=== PATIENT | male | born 1940 | race Caucasian/White ===

== ENCOUNTER 2020-07-04 10:45 | Day surgery (SDC) | payer OTHER ==
[~2020-07-04] VITALS: Ht 182.9 cm; Wt 91.6 kg
[~2020-07-04 10:45] MED LIST: AMLO10 PO; ATOR20 PO; AZIT250 PO; CODGUAEL PO; EPLE25 PO; Flomax0.4 MG PO; TERA5 PO
[2020-07-04] MEDS ORDERED: HYDCHL25 (11:34)
--- NOTE | 2020-07-04 12:50 | NUR ---
07/04/20 1250 Erica Carbajal PT SENT HOME IN LARGE SLING.
== END 2020-07-04 12:45 | disposition home or self-care (01) ==
LOC: ORSCSDS 10:45
PROVIDERS: Orthopaedic Surgery
PROC: 01N54ZZ Release Median Nerve, Percutaneous Endoscopic Approach (ICD-10-PCS; principal; 2020-07-04 12:00)
DX: G56.02 Carpal tunnel syndrome, left upper limb (principal); I10 Essential (primary) hypertension; E78.5 Hyperlipidemia, unspecified; G47.33 Obstructive sleep apnea (adult) (pediatric); Z79.899 Other long term (current) drug therapy
CPT/HCPCS: J2250; J3010; J7120

== ENCOUNTER → 2022-07-06 | Outpatient (CLI) | payer OTHER ==
[~2022-07-06] MED LIST changes: +HYDCHL25
== END | disposition home or self-care (01) ==
LOC: LAB SHORT 12:10 → LAB 12:10
DX: R30.0 Dysuria (principal)
CPT/HCPCS: 87077; 87086; 87186

== ENCOUNTER → 2022-07-16 | Outpatient (CLI) | payer OTHER | END | disposition home or self-care (01) | LOC: LAB SHORT 11:50 | DX: R30.0 Dysuria (principal) | CPT/HCPCS: 87086 ==